=== PATIENT | female | born 1975 | race Caucasian/White ===

== ENCOUNTER 2018-05-06 19:32 | Emergency (ER) | payer BC, OTHER ==
--- NOTE | 2018-05-06 21:31 | RADIOLOGY REPORT (SQ) ---
EXAM DESCRIPTION: XR FOOT 3 OR MORE VIEWS COMPLETED DATE/TME: 05/06/2018 20:37 CLINICAL HISTORY: 42 years, Female, pain COMPARISON: EXAM DESCRIPTION: CLINICAL HISTORY: pain COMPARISON: None FINDINGS: 3 view(s) submitted. No fracture or dislocation is identified. Bone marrow attenuation is unremarkable. No radiopaque foreign body is identified. IMPRESSION: No acute fracture or dislocation. NUMBER OF VIEWS: TECHNIQUE: LIMITATIONS: None. FINDINGS: IMPRESSION: 2010 [facility] [employer]- All Rights Reserved
--- NOTE | 2018-05-06 21:31 | RADIOLOGY REPORT (SQ) ---
EXAM DESCRIPTION: XR ANKLE 3 OR MORE VIEWS COMPLETED DATE/TME: 05/06/2018 20:37 CLINICAL HISTORY: 42 years, Female, pain COMPARISON: EXAM DESCRIPTION: CLINICAL HISTORY: pain COMPARISON: None FINDINGS: 3 view(s) submitted. No fracture or dislocation is identified. Bone marrow attenuation is unremarkable. No radiopaque foreign body is identified. IMPRESSION: No acute fracture or dislocation. NUMBER OF VIEWS: TECHNIQUE: LIMITATIONS: None. FINDINGS: IMPRESSION: 2010 [facility] [place] [employer]- All Rights Reserved
[2018-05-06] MEDS ORDERED: ACETAMINOPHEN 325 MG TABLET PO ONE (21:50)
[2018-05-06] MEDS ORDERED: IBUPROFEN 600 MG TABLET PO ONE (21:50)
--- NOTE | 2018-05-06 21:51 | ER Document Report ---
ED General - General Chief Complaint: Foot Pain Stated Complaint: RIGHT FOOT PAIN Time Seen by Provider: 05/06/18 20:36 Notes: Patient is a 42-year-old female without chronic medical problems who presents with 2 days of progressively worsening right foot and ankle pain. Patient states that this started after she was unpacking while moving including lifting boxes and stepping in and out of a [employer] truck. She states that initially she had no pain and cannot identify an acute event that started the pain. She states the pain is a throbbing, aching, constant pain worsened by walking. She denies a history of similar pain or injuries in the past. Denies any blunt trauma to the area. She has not trying to improve the pain. She has not seen her general doctor regarding today's concerns. TRAVEL OUTSIDE OF THE [place] IN LAST 30 DAYS: No - Related Data Allergies/Adverse Reactions: No Known Allergies Allergy (Unverified 04/29/15 15:35) Past Medical History - General Information source: Patient - Social History Smoking Status: Current Every Day Smoker Frequency of alcohol use: None Drug Abuse: None Lives with: Family Family History: Reviewed & Not Pertinent Patient has suicidal ideation: No Patient has homicidal ideation: No - Past Medical History Cardiac Medical History: Reports: Hx Hypercholesterolemia, Hx Hypertension Renal/ Medical History: Denies: Hx Peritoneal Dialysis Psychiatric Medical History: Reports: Hx Depression - anxiety Past Surgical History: Reports: Hx Section, Hx Cholecystectomy - Immunizations Hx Diphtheria, Pertussis, Tetanus Vaccination: Yes Review of Systems - Review of Systems Notes: Constitutional: Negative for fever. HENT: Negative for sore throat. Eyes: Negative for visual changes. Cardiovascular: Negative for chest pain. Respiratory: Negative for shortness of breath. Gastrointestinal: Negative for abdominal pain, vomiting or diarrhea. Genitourinary: Negative for dysuria. Musculoskeletal: Positive for right foot and ankle pain Skin: Negative for rash. Neurological: Negative for headaches, weakness or numbness. 10 point ROS negative except as marked above and in HPI. Physical Exam - Vital signs Vitals: Temp Pulse Resp BP Pulse Ox 99.2 F 95 16 135/90 H 97 05/06/18 19:53 05/06/18 19:53 05/06/18 19:53 05/06/18 19:53 05/06/18 19:53 Interpretation: Normal Notes: PHYSICAL EXAMINATION: GENERAL: Well-appearing, well-nourished and in no acute distress. HEAD: Atraumatic, normocephalic. EYES: sclera anicteric, conjunctiva are normal. ENT: Moist mucous membranes. NECK: Normal range of motion LUNGS: Normal work of breathing HEART: 2+ DP pulses bilaterally EXTREMITIES: no pitting or edema. No cyanosis. Pain on palpation of the area just below the lateral malleolus on the right ankle as well as along the lateral aspect of the dorsal surface of the right foot to approximate level of the midfoot. Mild associated swelling of the affected area. NEUROLOGICAL: No focal neurological deficits. Moves all extremities spontaneously and on command. PSYCH: Normal mood, normal affect. SKIN: Warm, Dry, normal turgor, no rashes or lesions noted. Course - Re-evaluation Re-evalutation: 05/06/18 21:49 No evidence of a septic joint, gout flare, dislocation, or fracture on exam and imaging. Clinical history is most consistent with a ligamentous strain. Vitals wnl. At this time, I do not see an indication for labs or further imaging. At this time will discharge with return precautions and follow-up recommendations. Verbal discharge instructions given a the bedside and opportunity for questions given. Medication warnings reviewed. Patient is in agreement with this plan and has verbalized understanding of return precautions and the need for primary care follow-up in the next 24-72 hours. - Vital Signs Vital signs: Temp Pulse Resp BP Pulse Ox 97.7 F 83 20 121/84 99 05/06/18 23:06 05/06/18 23:06 05/06/18 23:06 05/06/18 23:06 05/06/18 23:06 - Diagnostic Test Radiology reviewed: Image reviewed, Reports reviewed Radiology results interpreted by me: 05/06/18 21:50 Right ankle and foot x-rays: No acute fractures or dislocations Discharge - Discharge Clinical Impression: Right foot pain Right ankle sprain Qualifiers: Encounter type: initial encounter Involved ligament of ankle: unspecified ligament Qualified Code(s): S93.401A - Sprain of unspecified ligament of right ankle, initial encounter Condition: Good Disposition: HOME, SELF-CARE Additional Instructions: Your x-ray does not show any acute fracture today. You likely have a ligamentous strain. You should continue to take anti-inflammatories such as ibuprofen 600 mg every 6 hours. Continue to apply ice to the area is much your able. Please follow-up with your primary care physician if you do not have improving your symptoms in the next 1-2 weeks. Please return immediately if you develop weakness, numbness, spreading redness from the area, or any other symptoms that are concerning to you. Referrals: KEVIN MCDONNELL PA-C [COMMUNITY BASED STAFF] - Follow up as needed
[2018-05-06 23:09] VITALS: BP 121/84
== END 2018-05-06 23:11 | disposition home or self-care (01) ==
LOC: ER 19:32
DX: M79.671 Pain in right foot (principal); S93.401A Sprain of unspecified ligament of right ankle, initial encounter; M25.571 Pain in right ankle and joints of right foot; X58.XXXA Exposure to other specified factors, initial encounter; M79.89 Other specified soft tissue disorders; F17.200 Nicotine dependence, unspecified, uncomplicated; I10 Essential (primary) hypertension
CPT/HCPCS: 99283

== ENCOUNTER 2019-07-30 03:25 | Emergency (ER) | payer SELFPAY ==
[2019-07-30] MEDS ORDERED: ACETAMINOPHEN 325 MG TABLET PO ONE (03:57)
[2019-07-30] MEDS ORDERED: PREDNISONE 20 MG TABLET PO ONE (08:50)
[2019-07-30] MEDS ORDERED: KETOROLAC TROMETHAMINE 60 MG/2 ML SDV IM ONE (08:50)
--- NOTE | 2019-07-30 08:50 | ER Document Report ---
ED General - General Chief Complaint: Foot Pain Stated Complaint: LEFT FOOT PAIN Time Seen by Provider: 07/30/19 08:13 Primary Care Provider: ANTHONY CAMACHO PA-C [Primary Care Provider] - Follow up as needed Notes: CHIEF COMPLAINT: Left lateral foot pain that began yesterday HPI: 43-year-old female with a history of gouty arthritis presenting with left lateral foot pain that began yesterday. Patient states the discomfort feels typical of what she would consider to be a gout arthropathy. Has not had fever. Denies diabetes. Denies numbness or tingling in the toes. Patient is not currently on medications for gout, states that normally steroids and colchicine work for her ROS: See HPI - all other systems were reviewed and are otherwise negative Constitutional: no fever : no dysuria Integumentary: no rash Allergy: no hives Musculoskeletal: + extremity pain or swelling Neurological: no numbness/tingling, no weakness MEDICATIONS: I agree with the patient medications as charted by the RN. ALLERGIES: I agree with the allergies as charted by the RN. PAST MEDICAL HISTORY/PAST SURGICAL HISTORY: Reviewed and agree as charted by RN. SOCIAL HISTORY: Reviewed and agree as charted by RN. FAMILY HISTORY: No significant familial comorbid conditions directly related to patient complaint EXAM: Reviewed vital signs as charted by RN. CONSTITUTIONAL: Alert and oriented and responds appropriately to questions. Well-appearing; well-nourished, mild distress secondary to pain HEAD: Normocephalic; atraumatic EYES: Conjunctivae clear, sclerae non-icteric ENT: normal nose; no rhinorrhea; moist mucous membranes; pharynx without lesions noted NECK: Supple without meningismus; non-tender; no cervical lymphadenopathy, no masses CARD: symmetric distal pulses RESP: Normal chest excursion without splinting or tachypnea ABD/GI: non-distended BACK: The back appears normal EXT: Normal ROM in all joints; no visible swelling to the left foot. No visible erythema. Mild tenderness over the dorsal distal aspect of the left foot at the base of the third fourth and fifth toes on the dorsal and plantar aspect. Dorsalis pedis and posterior tibial pulses are present in the left foot and ankle. Sensation is intact in the toes with capillary refill less than 3 seconds. There is no discomfort on palpation of the medial or lateral malleolus of the left ankle; no cyanosis, no effusions, no edema SKIN: Normal color for age and race; warm; dry; good turgor; no acute lesions noted NEURO: Moves all extremities equally; Motor and sensory function intact PSYCH: The patient's mood and manner are appropriate. Grooming and personal hygiene are appropriate. MDM: 43-year-old female with a gout history presenting for left foot pain she feels is typical of a gouty arthropathy. No visible erythema suggesting a cellulitis she denies trauma. Has been on steroids and colchicine in the past. Will place patient on steroids, colchicine, Indocin. Will give Toradol, steroids in the ER TRAVEL OUTSIDE OF THE [place] IN LAST 30 DAYS: No - Related Data Allergies/Adverse Reactions: No Known Allergies Allergy (Unverified 04/29/15 15:35) Home Medications: metoprolol, htzc, effexor, xanax prn Past Medical History - Social History Smoking Status: Current Every Day Smoker Family History: Reviewed & Not Pertinent Patient has suicidal ideation: No Patient has homicidal ideation: No - Past Medical History Cardiac Medical History: Reports: Hx Hypercholesterolemia, Hx Hypertension Renal/ Medical History: Denies: Hx Peritoneal Dialysis Psychiatric Medical History: Reports: Hx Depression - anxiety Past Surgical History: Reports: Hx Section, Hx Cholecystectomy - Immunizations Hx Diphtheria, Pertussis, Tetanus Vaccination: Yes Physical Exam - Vital signs Vitals: Temp Pulse Resp BP Pulse Ox 98.0 F 121 H 18 151/101 H 98 07/30/19 04:01 07/30/19 04:01 07/30/19 04:01 07/30/19 04:01 07/30/19 04:01 Course - Vital Signs Vital signs: Temp Pulse Resp BP Pulse Ox 97.8 F 89 16 156/88 H 95 07/30/19 08:30 07/30/19 08:30 07/30/19 08:30 07/30/19 08:30 07/30/19 08:30 Discharge - Discharge Clinical Impression: Gout of left foot Qualifiers: Gout etiology: unspecified cause Chronicity: acute Qualified Code(s): M10.9 - Gout, unspecified Condition: Stable Disposition: HOME, SELF-CARE Instructions: Gout Diet ([facility]), Gout ([facility]) Additional Instructions: Ice the left foot to help with swelling and pain. medications as prescribed. follow up with your PCP for further evaluation and treatment call for appt Prescriptions: Prednisone [Deltasone 20 mg Tablet] 2 tab PO DAILY 5 Days tablet Indomethacin [Indocin 25 Mg Capsule] 25 mg PO TID #21 capsule Referrals: ANTHONY CAMACHO PA-C [Primary Care Provider] - Follow up as needed
[2019-07-30 10:07] VITALS: BP 142/66
== END 2019-07-30 09:45 | disposition home or self-care (01) ==
LOC: ER 03:25
DX: M10.9 Gout, unspecified (principal); M79.672 Pain in left foot; F17.200 Nicotine dependence, unspecified, uncomplicated; E78.00 Pure hypercholesterolemia, unspecified; I10 Essential (primary) hypertension; Z90.49 Acquired absence of other specified parts of digestive tract
CPT/HCPCS: J1885; J7512; 96372; 99283